=== PATIENT | male | born 1990 | race Caucasian/White ===

== ENCOUNTER 2023-08-17 22:30 | Inpatient (IN) | payer BC, SELFPAY ==
[2023-08-17 19:25] VITALS: BP 150/93
[2023-08-17 19:58] LABS: % Basophils 0.3 % (0-2); % Eosinophils 0.1 % (0-6); % Immature Granulocytes 0.5 % (0-0.5); % Lymphocytes 8.5 % (20.5-51.1); % Monocytes 7.8 % (1.7-9.3); % Neutrophils 82.8 % (42.2-75.2); Absolute Immature Granulocytes 0.1 10^3/uL (0-0.05); Absolute Monocytes 0.9 10^3/uL (0.1-0.6); Absolute Neutrophils 9.4 10^3/uL (1.4-6.5); Hematocrit 39.7 % (39.0-52.0); Hemoglobin 14.1 g/dL (13.0-18.0); Mean Corp Hgb Conc. 35.5 g/dL (33.0-37.0); Mean Corpuscular Hgb 29.9 pg (27.0-31.0); Mean Corpuscular Volume 84.1 fL (80.0-94.0); Mean Platelet Volume 8.3 fL (7.4-10.4); Nucleated Red Blood Cells % 0 % (-); Platelet Count 351 10^3/uL (130-400); Red Blood Cell Count 4.72 10^6/uL (4.70-6.10); Red Cell Dist. Width 13.1 % (11.5-14.5); White Blood Cell Count 11.3 10^3/uL (4.8-10.8)
[2023-08-17 20:13] LABS: ALT (SGPT) 24 U/L (0-50); AST (SGOT) 23 U/L (17-59); Albumin 4.1 g/dl (3.5-5.0); Alkaline Phosphatase 180 U/L (38-126); Blood Urea Nitrogen 13 mg/dl (9-20); Calcium 9.1 mg/dl (8.4-10.2); Carbon Dioxide 21 mmol/L (22-30); Chloride 92 mmol/L (98-107); Glucose 426 mg/dl (70-99); Potassium 4.6 mmol/L (3.5-5.1); Sodium 127 mmol/L (135-145); Total Bilirubin 0.8 mg/dl (0.2-1.3); Total Protein 8.9 g/dl (6.3-8.2); eGFR > 60.00
[2023-08-17 20:14] LABS: Lactic Acid 1.6 mmol/L (0.7-2.0)
[2023-08-17 21:02] VITALS: BMI 26.4
[2023-08-17 21:16] VITALS: BP 137/73
--- NOTE | 2023-08-17 21:23 | ED.GENMED ---
History of Present Illness
General
Chief Complaint: Skin Problem
Source: patient and family (Mother)
Exam Limitations: none
Time Seen by Provider: 08/17/23 21:09
Nursing documentation reviewed up to this point in time: agreed with
Travel History
Have you had any contact with someone who has COVID-19?: No
Do you have any symptoms of coronavirus? Fever > 100 degrees, chills, cough, shortness of breath, sore throat, loss of taste or smell, muscle aches, or headache?: No
History of Present Illness
History of Present Illness:
32-year-old male with a past medical history of insulin-dependent diabetes, hidradenitis suppurativa who presents to the department for evaluation of rectal pain and swelling. Patient reports that for the past 2 weeks or so he has had gradually
worsening pain in the left gluteal region extending towards his rectum and perineum. He has noticed some drainage from the area. He says the area is very warm and tender to the touch. He says that over the past 48 hours he has started develop fever
and chills. He says that initially he was seen at urgent care hoping to have the area drained and was referred to the emergency room for IV antibiotics. He does have chronic erythema and swelling in the left chest wall/axillary region that he says
has been worse over the past few weeks as well. He has a surgical appointment scheduled for follow-up in a week to discuss drainage but given worsening symptoms sought care today and was ultimately referred to the ER.
Past History
Past History
ED Past Medical History: IDDM
ED Past Surgical History: Negative Cardiac
Social History
Tobacco: Non-smoker
Alcohol: Occasional
Drug: None
Living: with family
Employment: Employed
Family History
Family History: Diabetes
Review of Systems
Review of Systems
All Other Systems: ROS reviewed and negative except as documented in HPI and ROS
Constitutional: Reports fever, fatigue and chills
EENT: Denies sore throat or runny nose
Respiratory: Denies cough or trouble breathing
Cardiac: Denies chest pain or palpitations
ABD/GI: Denies abdominal pain, nausea or vomiting
: Denies flank pain
Musculoskeletal: Denies neck pain or back pain
Skin: Reports other (Redness, swelling, pain in the gluteal/perianal/perineum)
Phy Exam
Physical Exam
Physical Exam:
General: Awake, alert, oriented x3; appears uncomfortable
Head: Normocephalic, atraumatic
Eyes: Conjunctiva normal, sclera anicteric
Throat: Airway intact, handling secretions
Neck: Trachea midline, supple without meningismus
Lungs: Clear to auscultation bilaterally, no wheezing, rales, rhonchi
Heart: Tachycardia with regular rhythm, no murmurs, gallops, or rubs
Abd: Soft, non distended, nontender
Neuro: No gross deficit
Skin: Patient has a significant area of erythema extending from the left gluteal region towards perianal region�this area is erythematous, indurated, tender to the touch and there is a wide rim of erythema and erythema tracks towards the perineum
and inferior aspect of the scrotum as well as into the left inguinal region anteriorly; he has tiny pustule in the left inguinal region serous drainage and purulence; left chest wall there is a wide area of erythema and warmth, tenderness with
scattered pustules purulent drainage
Extremities: Warm and well-perfused
Scores
Heart Failure Risk
Heart Failure Risk Score: Not Applicable
Heart Score for Chest Pain Patients
STEMI patient?: Not applicable
Withdrawal Assessment of Alcohol
Withdrawal Assessment Completed?: Not applicable
Course
Orders/Labs/Results
Orders:
Orders
08/17/23 19:42
Complete Blood Count/With Diff Urgent
Comprehensive Metabolic Panel Urgent
Lactic Acid Urgent
Blood Culture Urgent
ASYA Source: Blood/Venous
Specimen Description:
08/17/23 21:17
CT Abd/pelvis W Iv Cont Urgent
Comment:
Reason For Exam: rectal abscess tracks to perineum
Lactate Level [Lactic Acid] Urgent
08/17/23 21:18
Consult Surgery [SURGICAL CONSULT] Urgent
Consulting Provider: Maurilio Carr
Was physician already notified: Yes
Piperacillin/Tazo 3.375 Gram [Zosyn] 3.375 gram in 50 ml IV NOW
Vancomycin [Vancocin] 2,000 mg 0.9% Sodium Chloride 500 ml [Nss] 500 ml IV NOW
08/17/23 21:30
Blood Culture Q30M
ASYA Source: Blood/Venous
Specimen Description:
Abnormal Lab Results
08/17/23
19:42
WBC 11.3 H 10^3/uL
(4.8-10.8)
Abs Immat Gran (auto) 0.1 H 10^3/uL
(0-0.05)
Absolute Neuts (auto) 9.4 H 10^3/uL
(1.4-6.5)
Absolute Lymphs (auto) 1.0 L 10^3/uL
(1.2-3.4)
Absolute Monos (auto) 0.9 H 10^3/uL
(0.1-0.6)
Neutrophils % 82.8 H %
(42.2-75.2)
Lymphocytes % 8.5 L %
(20.5-51.1)
Sodium 127 L mmol/L
(135-145)
Chloride 92 L mmol/L
(98-107)
Carbon Dioxide 21 L mmol/L
(22-30)
Glucose 426 H mg/dl
(70-99)
Alkaline Phosphatase 180 H U/L
(38-126)
Total Protein 8.9 H g/dl
(6.3-8.2)
08/17/23 19:42
08/17/23 19:42
Vital Signs
Initial and Last Documented VS:
Initial Vital Signs
Temp Pulse Resp BP Pulse Ox
38.4 C H 129 18 150/93 100
08/17/23 19:25 08/17/23 19:25 08/17/23 19:25 08/17/23 19:25 08/17/23 19:25
Last Documented Vital Signs
Temp Pulse Resp BP Pulse Ox
39.4 C H 117 20 150/93 98
08/17/23 21:07 08/17/23 21:07 08/17/23 21:07 08/17/23 19:25 08/17/23 21:17
MDM/Problems Addressed
Differential Diagnosis Includes:
Abscess, cellulitis
MDM/Problems Addressed:
32-year-old male presents for evaluation of pain, redness, swelling in the left gluteal region extending towards the perirectal area and perineum as above. This has been gradually progressing over the past 2 weeks. Started to have fevers and
chills. Referred to the emergency room after urgent care visit with suspicion for significant abscess requiring IV antibiotics and surgical consultation. He is tachycardic, febrile with exam as above. IV placed labs sent off including a CBC and
CMP, lactate, blood cultures. Will send for CT of the abdomen pelvis. Will cover patient with broad-spectrum antibiotics vancomycin and Zosyn. Discussed with general surgery for consultation as I suspect based on his exam that he will require
drainage in the operating room. Will plan for admission pending initial assessment.
Labs reviewed: CBC shows leukocytosis 12.3. CMP shows hyperglycemia to 426�he has a tiny anion gap of 14 but not significantly acidotic. Will treat with subcutaneous insulin and IV fluid resuscitation. Covered with broad-spectrum antibiotics as
above. CT pending. Case discussed with hospitalist for admission.
Chronic conditions affecting care:
Insulin-dependent diabetes
Acute Exacerbation and/or Progression of Chronic Illness:
Acutely hypertensive�monitor closely but no emergent indication for antihypertensive for now
Acutely hyperglycemic�treated with insulin and fluids
Acute Exacerbation and/or Progression of Chronic Illness: DM and HTN
*Radiology
Radiology exam reviewed: radiology read reviewed
*Pulse Oximetry
Patient hypoxic: no
*Critical Care Note
Total Time (30-74mins, 75-104mins- exclusive of procedures): 37
comment:
Critical care statement: A total of 37 minutes of critical care time was provided for this patient. This includes management of unstable vital signs, evaluation of the patient at bedside, frequent reassessment, discussion with
consultants/hospitalist, and review of pertinent medical records. This time was separate from time utilized to perform any aforementioned documented procedures
Data Reviewed
Review of Other/Old Records Reveals: Labs
Source: patient and family (Mother)
Patient Management
Discussion with other providers: Hospitalist (Discussed with hospitalist) and Insights Manager (Discussed with general surgery)
Escalation/DeEscalation of care consider admission/obs:
Admission indicated
ED Attending Note
-
Portions of this chart may have been created with voice recognition software.� Occasional wrong word or��sound alike� substitutions may have occurred due to the inherent limitations of voice recognition software.
Discharge Plan
Departure
Date of Disposition: 08/17/23
Time of Disposition: 21:32
Admit to doctor: Gloria
Presentation/result/management discussed w/ accepting MD/DO: Hospitalist
Prescriptions:
No Action
insulin glargine [Lantus Solostar U-100 Insulin] 100 unit/mL (3 mL) Insulin Pen
24 unit SC BID
doxycycline hyclate 100 mg capsule
100 mg PO BID
insulin lispro [Humalog U-100 Insulin] 100 unit/mL solution
0 sliding scale dose SC ACHS
sertraline 50 mg tablet
150 mg PO DAILY
lurasidone 40 mg tablet
40 mg PO HS
Humira(CF) Pen 80 mg/0.8 mL pen injector kit
80 mg SC Q2W
Interventions
Interventions:
*Risk Screen - Suicide Last Done: 08/17/23 19:25
*General Assessment Last Done: 08/17/23 19:25
*Neglect/Abuse Screening Last Done: 08/17/23 19:25
*ED COVID-19 Vaccine History Last Done: 08/17/23 21:17
ED-Skin Assessment Last Done: 08/17/23 21:17
Discharge Date and Time
Print Language: KENYAN
--- NOTE | 2023-08-17 21:36 | HPS.HSE ---
Family Physician
-
Family Physician: JEM Howard
Chief Complaint
-
rectal abscess
History of Present Illness
32-year-old male with a past medical history of insulin-dependent diabetes, hidradenitis suppurativa who presents to the department for evaluation of rectal pain and swelling. Patient reports that for the past 2 weeks or so he has had gradually
worsening pain in the left gluteal region extending towards his rectum and perineum. He has noticed some drainage from the area. since yesterday, he is having fever, chills, . worsening of his gluteal pain. He does have chronic erythema and
swelling in the left chest wall/axillary region that he says has been worse over the past few weeks as well. stated PONCE, dizzy when he stands up. denied runny nose congestion, cough. denied chest pain, sob. denied abdominal pain, n,v,d. denied
dysuria or hematuria.
on arrival patient is sepsis. gave vanco and Zosyn. fluids. patient also received 10u insulin ER. admitting for further management.
Medical History
Past Medical History
Past Medical History: Reports Other
Additional Past Medical History:
Hidradenitis suppurativa
type 1 Dm
Past Surgical History: Reports None
Social History
Tobacco: Non-smoker
Alcohol: None
Drug: None
Living: With Family
Family History
Family History: Not pertinent
Allergies / Home Medications
Allergies reflects when Allergies were last updated in [facility].
Home Medications with original date entered in [facility]
Allergy/Medication List:
Allergies
Allergy/AdvReac Type Severity Reaction Status Date / Time
NKA - No Known Allergies Allergy Tongue Uncoded 07/22/22 04:07
Swelling
Home Medications
insulin glargine 100 unit/mL (3 mL) subcutaneous pen (Lantus Solostar U-100 Insulin) 24 unit SC BID 07/22/22
adalimumab 80 mg/0.8 mL subcutaneous pen kit (Humira(CF) Pen) 80 mg SC Q2W 08/17/23
doxycycline hyclate 100 mg capsule 100 mg PO BID 08/17/23
insulin lispro 100 unit/mL subcutaneous solution (Humalog U-100 Insulin) 0 sliding scale dose SC ACHS 08/17/23
lurasidone 40 mg tablet 40 mg PO HS 08/17/23
sertraline 50 mg tablet 150 mg PO DAILY 08/17/23
Review of Systems
-
Constitutional: Reports No Symptoms
EENT: Reports No Symptoms
Respiratory: Reports No Symptoms
Cardiac: Reports No Symptoms
Abdomen/GI: Reports No Symptoms
: Reports No Symptoms
Musculoskeletal: Reports No Symptoms
Skin: Reports Other (left chest wall wound, rectum wound)
Neurological: Reports No Symptoms
Endocrine: Reports No Symptoms
Hematologic/Lymphatic: Reports No Symptoms
Psych: Reports No Symptoms
Physical Exam
Vital Signs
Vital Signs
Temp Pulse Resp BP Pulse Ox
102.9 F H 117 20 150/93 98
08/17/23 21:07 08/17/23 21:07 08/17/23 21:07 08/17/23 19:25 08/17/23 21:17
Physical Exam
General: Well Developed, Well Nourished and No Apparent Distress
HEENT: NormoCephalic, Moist mucous membranes and Atraumatic
Respiratory: Clear
Cardiac: S1/S2 and Regular Rhythm; No Murmur or Rub
GI: Soft, Non Tender, Non Distended and Normal Bowel Sounds; No Organomegaly
Rectal: Deferred by Provider
Musculoskeletal: No Clubbing, No Cyanosis and No Edema
Skin: Other (erythema extending from the left gluteal region towards perianal region-this area is erythematous, indurated)
Neuro: AO x 3 and Nonfocal/grossly intact
Psych: Calm
Laboratory Results
-
08/17/23 19:42
08/17/23 19:42
Laboratory Results
Lactic Acid 1.6 mmol/L (0.7-2.0) 08/17/23 19:42
Total Bilirubin 0.8 mg/dl (0.2-1.3) 08/17/23 19:42
AST 23 U/L (17-59) 08/17/23 19:42
ALT 24 U/L (0-50) 08/17/23 19:42
Alkaline Phosphatase 180 U/L (38-126) H 08/17/23 19:42
Data Reviewed
-
Lab Data: Labs Reviewed by me
Impression/Plan
-
# Sepsis from perirectal abscess
-WBC 11.3, fever of 102.9, tachy
-CT abdomen pelvis pending
-IV Vanco Zosyn continued
-Dilaudid as needed for pain
-Tylenol as needed for fever
-Blood culture sent from ER
-Trend lactic acid
-Surgery consulted
# Hyponatremia likely pseudo
-corrected sodium is 135
-CTM
# Type 1 diabetes with hyperglycemia
-Patient received NovoLog 10 units in the ER
-blood sugar 426
-Lantus 25 units twice a day continued
-Sliding scale
# Anxiety
-Sertraline continued
-Lurasidone continued
# DVT prophylaxis
-. SCD
# CODE STATUS
-Full code
[2023-08-17] MEDS: NSS 1000 IV (21:47)
[2023-08-17] MEDS: DILAUDID 0.5 MG IV (21:48)
[2023-08-17] MEDS: ZOSYN 50 IV (21:49)
[2023-08-17] MEDS: NOVOLOG vial 10 UNITS SC (21:55)
[2023-08-17] MEDS: TYLENOL 1000 MG PO (21:57)
[2023-08-17 21:58] LABS: Lactic Acid 2.1 mmol/L (0.7-2.0)
[2023-08-17 22:00] VITALS: BP 129/75
--- NOTE | 2023-08-17 22:36 | W.PN.UPDATE ---
Update Note
Progress Note Update
This is an addendum to the H&P written by Macy Hagan on 08/17/2023. Patient seen and examined independently with COMPOSITION ROLL MAKER [employer] CUTTER. 32-year-old male past medical history of type 1 diabetes, hiradenitis supparatica, presenting with rectal pain, swelling and
discharge over the past few weeks which has been extending to the perineum associate with fevers and chills. He has sepsis secondary to perirectal abscess. N.p.o. past midnight, IV fluids, pain/nausea control, blood cultures, vancomycin/Zosyn. CT
abdomen pelvis pending. General surgery may take to OR tomorrow.
Patient also with elevated blood sugar of 400 secondary to infection. Continue Lantus 24 units twice daily.
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
[2023-08-17 23:06] VITALS: BP 137/73
[2023-08-17 23:09] VITALS: BP 137/73
[2023-08-17] MEDS: VANCOCIN 540 MG IV (23:22)
[2023-08-17 23:59] LABS: Glucose - Point of Care 298 mg/dl (70-99)
[2023-08-18] VITALS (16 sets, daily range): BP systolic 106–155; BP diastolic 61–88
[2023-08-18] MEDS: LANTUS 0.239999999999999991 UNITS SC ×3 (00:21→19:41)
[2023-08-18] MEDS: NSS 1000 IV ×3 (00:21→17:13)
[2023-08-18] MEDS: LATUDA PO (04:41)
--- NOTE | 2023-08-18 04:46 | DOWNTIME ---
There was a [employer] Client Medical Microbiologist Downtime on 08/18/2023 from 0100 to 08/18/2023 at 0439. Downtime documentation of patient's care, including medication administrations, has been reconciled in the electronic record per guidelines. Refer to the
patient's paper chart under the miscellaneous tab to see printed paper medication records and downtime forms.
--- NOTE | 2023-08-18 06:28 | W.PN.HOSP.TC ---
Today's Communication/Plan
-
see bold
Assessment / Plan
Assessment / Plan
Gen: NAD, AAOx3.
Eyes: EOMI, PERRLA, no scleral icterus.
Neck: supple.
CV: RRR, +S1/S2, no m/r/g.
Resp: CTAB, no rales, wheezes, or rhonchi.
Abd: +BS, soft, NT, ND
Skin: No rashes.
Neuro: CN 2-12 intact, non-focal.
Psych: Normal mood and affect.
CT A/P:
1. LARGE 6.8 cm TUBULAR SHAPED RIM-ENHANCING RIGHT-SIDED PERIANAL ABSCESS extending to the right posterior skin surface surrounded by moderate inflammation and overlying skin thickening. 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
2. No CT evidence for intraperitoneal abscess.
3. Moderate amount of fecal material throughout the colon and rectum suggesting constipation.
4. Mild to moderate hepatosplenomegaly.
Sepsis due to perianal abscess:
-NPO/IVFs/pain control
-surgery c/s
-cont Vanco/Zosyn
-follow BCxs
-lactic acidosis, trend lactic acid
DM1, uncontrolled with hyperglycemia:
-cont Lantus/SSI/accuchecks
-check a1c
Other problems:
Hidradenitis suppurativa: outpt f/u
Anxiety: Continue Zoloft/Lurasidone
Hyponatremia, corrected Na 132
FULL/SCDs
Anticipated Discharge: > 48 hours
Subjective/Interval History
-
Date of Service: August 18, 2023
No new complaints.
Objective Data
-
Labs:
Laboratory Results
08/17/23 08/18/23
19:42 06:00
WBC 11.3 H Pending
Hgb 14.1 Pending
Hct 39.7 Pending
Plt Count 351 Pending
Sodium 127 L Pending
Potassium 4.6 Pending
Chloride 92 L Pending
Carbon Dioxide 21 L Pending
BUN 13 Pending
Creatinine 0.8 Pending
Glucose 426 H Pending
Calcium 9.1 Pending
Total Bilirubin 0.8
AST 23
ALT 24
Alkaline Phosphatase 180 H
Vital Signs:
Vital Signs
Temp Pulse Resp BP Pulse Ox
98.3 F 91 20 131/78 98
08/17/23 23:09 08/18/23 00:19 08/18/23 00:19 08/18/23 00:19 08/18/23 00:19
[2023-08-18 06:40] LABS: Hematocrit 33.1 % (39.0-52.0); Hemoglobin 11.5 g/dL (13.0-18.0); Mean Corp Hgb Conc. 34.7 g/dL (33.0-37.0); Mean Corpuscular Volume 86.4 fL (80.0-94.0); Mean Platelet Volume 8.3 fL (7.4-10.4); Platelet Count 238 10^3/uL (130-400); Red Blood Cell Count 3.83 10^6/uL (4.70-6.10); Red Cell Dist. Width 12.9 % (11.5-14.5); White Blood Cell Count 8.2 10^3/uL (4.8-10.8)
[2023-08-18 06:55] LABS: Lactic Acid 0.6 mmol/L (0.7-2.0)
[2023-08-18 07:07] LABS: Blood Urea Nitrogen 8 mg/dl (9-20); Calcium 7.9 mg/dl (8.4-10.2); Carbon Dioxide 25 mmol/L (22-30); Chloride 99 mmol/L (98-107); Estimated Creatinine Clearance > 125 ml/min; Glucose 265 mg/dl (70-99); Sodium 130 mmol/L (135-145); eGFR > 60.00
[2023-08-18 07:59] LABS: Glucose - Point of Care 290 mg/dl (70-99)
[2023-08-18] MEDS: ZOLOFT 150 MG PO (08:49)
[2023-08-18] MEDS: NOVOLOG FLEXPEN-MODERATE RESISTANCE 5 UNITS SC (08:50)
[2023-08-18] MEDS: DILAUDID 1 MG IV ×2 (08:51→19:25)
[2023-08-18 09:12] LABS: Glycohemoglobin (HgbA1c) 12.1 % (4.0-5.6)
--- NOTE | 2023-08-18 09:35 | PHA.VAN.IN ---
Assessment
- Assessment
Renal Function: Appears similar to baseline
Concomitant Antimicrobials: piperacillin/tazobactam
AUC Dosing Plan
- Dosing Variables
Dosing Weight (kg): 88
Dosing CrCl (ml/min): 125
Vd coefficient (L/kg): 0.7
- Empiric Dosing
Initial / Loading Dose: 2000mg - 08/16 23:22
Maintenance Regimen: Vanc 1000mg Q8H starting at 1400
Estimated AUC (mcg*h/mL): 475
Estimated Peak (mcg*h/mL): 28
Estimated Trough (mcg/ml): 13.2
Estimated Half Life (H): 6.4
- Monitoring
No levels ordered at this time: consider levels in next few days
Pharmacokinetics Vancomycin I
- -
Patient Age: 32
Patient Sex: Male
Vancomycin Day #: 1
Indication: Skin And Soft Tissue
Requesting Provider: Dinorah Hagan
Pertinent Antimicrobial Allergies:
NKDA
Height / Weight:
Height 6 ft
Actual Weight 88.1 kg
Pertinent Past Medical History: DM
- Vital Signs / Lab Results
Temp Pulse Resp BP Pulse Ox
97.8 F 85 21 106/66 98
08/18/23 07:00 08/18/23 06:30 08/18/23 03:30 08/18/23 06:26 08/18/23 06:26
Lab Results - Hematology
08/17/23 08/18/23
19:42 06:28
WBC 11.3 H 8.2
Lab Results - Chemistry
08/17/23 08/18/23
19:42 06:28
BUN 13 8 L
Creatinine 0.8 0.5 L
Estimated Creat Clear > 125
Albumin 4.1
08/17/23 08/17/23 08/18/23
19:42 21:30 06:28
Lactic Acid 1.6 2.1 H 0.6 L
--- NOTE | 2023-08-18 10:59 | CON.GS ---
Consultation
-
Requesting Provider: Bentley
Performing Provider: Lilly
Reason for Consultation: Perianal abscess
Medical History
-
Chief Complaint: Perianal pain
History of Present Illness:
32M with several week hx of perianal pain that acutley worsened in the past 2-3 days. He has a known hx of hidradenitis affecting mostly his left axilla and perianal area. Endorses chills and drainage and elevated sugars. He reports he has struggled
to control his sugars over the past year. Denies n/v. Denies diarrhea/constipation.
Past Medical History
Past Medical History: IDDM and Other (hidradenitis)
Past Surgical History: Reviewed & Noncontributory
Social History
Tobacco: Non-Smoker
Alcohol: None
Drug: None
Personal:
Family History
Family History: Reviewed & Noncontributory
Allergies / Home Medications
Allergy/AdvReac Type Severity Reaction Status Date / Time
No Known Allergies Allergy Unverified 08/17/23 23:57
�Medication �Instructions �Recorded �Confirmed �Type
insulin glargine 100 unit/mL (3 24 unit SC BID 07/22/22 08/17/23 History
mL) subcutaneous pen (Lantus
Solostar U-100 Insulin)
adalimumab 80 mg/0.8 mL 80 mg SC Q2W 08/17/23 08/17/23 History
subcutaneous pen kit (Humira(CF)
Pen)
doxycycline hyclate 100 mg capsule 100 mg PO BID 08/17/23 08/17/23 History
insulin lispro 100 unit/mL 0 sliding scale dose SC ACHS 08/17/23 08/17/23 History
subcutaneous solution (Humalog
U-100 Insulin)
lurasidone 40 mg tablet 40 mg PO HS 08/17/23 08/17/23 History
sertraline 50 mg tablet 150 mg PO DAILY 08/17/23 08/17/23 History
Review of Systems
-
A 10 point review of systems was completed, and was negative except as per HPI.
Physical Exam
Vital Signs
Temp Pulse Resp BP Pulse Ox
97.8 F 85 21 106/66 98
08/18/23 07:00 08/18/23 06:30 08/18/23 03:30 08/18/23 06:26 08/18/23 06:26
08/17/23 08/18/23 08/19/23
06:59 06:59 06:59
Actual Weight 88.1 kg
Body Mass Index (BMI) 26.4
Lab Results
08/18/23 06:28
08/18/23 06:28
WBC 8.2 10^3/uL (4.8-10.8) 08/18/23 06:28
Hgb 11.5 g/dL (13.0-18.0) L 08/18/23 06:28
Hct 33.1 % (39.0-52.0) L 08/18/23 06:28
Plt Count 238 10^3/uL (130-400) D 08/18/23 06:28
Abs Immat Gran (auto) 0.1 10^3/uL (0-0.05) H 08/17/23 19:42
Neutrophils % 82.8 % (42.2-75.2) H 08/17/23 19:42
Physical Exam
General: Well Developed, Well Nourished and No Apparent Distress
GI: Soft and Non Tender
Rectal: Tenderness (tender fluctuant erythematous areas with bloody purulent drainage, limited exam 2/2 tenderness)
Neuro: AO x 3
Psych: Calm
Data Reviewed
-
CT Scan: Image Personally Visualized and interpreted, Report Reviewed by me, Discussed with Patient and Discussed with Family
Labs: Labs Reviewed by me, Discussed with Patient and Discussed with Family
Assessment / Plan
-
32M with perianal abscess in setting of IDDM and hidradenitis
Tmax 102.9F, fever trending down, otherwise VSS
Spontaneous drainage present but limited exam
WBC has normalized
CT with rim enhancing perianal collection
Plan:
OCTOR for EUA and I&D of perianal abscess
IV abx
NPO/IVF
DVT ppx
PRN pain meds
[2023-08-18 11:32] LABS: Glucose - Point of Care 224 mg/dl (70-99)
[2023-08-18] MEDS: NOVOLOG FLEXPEN-MODERATE RESISTANCE 3 UNITS SC (12:17)
--- NOTE | 2023-08-18 12:42 | WOUNDNOTE ---
WOC RN NOTE: Chart reviewed, plan is for OR for abscess. Will follow as needed s/p surgery. Hospitalist notified.
[2023-08-18] MEDS: TYLENOL 650 MG PO (13:01)
[2023-08-18] MEDS: VANCOCIN 200 IV ×2 (13:59→22:06)
[2023-08-18 15:06] LABS: Glucose - Point of Care 259 mg/dl (70-99)
[2023-08-18] MEDS: NOVOLOG vial 6 UNITS SC (15:14)
--- NOTE | 2023-08-18 16:18 | W.IMMPOSTOP ---
Surgical Immed Post Op Note
-
Primary Surgeon: Lilly
Pre-op Diagnosis: Perianal abscess
Post-op Diagnosis: Same
Procedure Performed: Incision and drainage of perianal abscess
Anesthesia Type: LMA
Specimen / Cultures: None
Estimated Blood Loss: 25cc
Complications: None immediate
Operative Findings: 2 wounds, one distal that is shallow and packed with 4x4, one very close to anus packed with single kerlix
--- NOTE | 2023-08-18 16:20 | OR.RPT ---
Operative Report
Operative Report
Primary Surgeon: Lilly
Pre-op Diagnosis: Perianal abscess
Post-op Diagnosis: Same
Procedure Performed: Exam under anesthesia, incision and drainage of perianal abscess
Anesthesia Type: LMA
Specimen / Cultures: None
Estimated Blood Loss: 25cc
Complications: None immediate
Operative Findings: 2 wounds, one distal that is shallow and packed with 4x4, one very close to anus packed with single kerlix
Date of Surgery: 08/18/23
Indications: This 32M with a history of insulin dependent diabetes and hidradenitis developed perianal swelling, pain and drainage. Cross sectional imaging revealed a perianal rim enhancing fluid collection. Exam under anesthesia, incision and
drainage of perianal abscess was planned.
Description of procedure: The patient was placed on the operating table in the supine position. General anesthesia was induced using LMA. A time-out was completed verifying correct patient, procedure, site, positioning, and special equipment prior
to beginning this procedure. Pt was positioned into lithotomy. The perianal area was prepped and draped in the usual sterile fashion. An area of fluctuance with expressible drainage was identified and incised with a #15 blade. This area did not open
up into an abscess cavity but appeared to be a scarred in tract from his hidradenitis. A second area of active drainage was identified near the anus. This area was similarly incised unroofing the abscess cavity. The cavity was digitally probed to
disrupt loculatins and irrigated with copious sterile saline. A saline moist 4x4 was used to pack the shallow wound, the deeper wound was packed with saline moist kerlix. 4x4s were placed over the wounds and disposable underwear was placed.
The patient tolerated the procedure well and was taken to the postanesthesia care unit in stable condition.
[2023-08-18] MEDS: DILAUDID 0.25 MG IV ×2 (16:56→17:13)
[2023-08-18 17:02] LABS: Glucose - Point of Care 205 mg/dl (70-99)
[2023-08-18] MEDS: NOVOLOG vial 3 UNITS SC (17:13)
--- NOTE | 2023-08-18 17:45 | PTCARENOTE ---
Pt arrived to [facility] from PACU s/p melissa anal abscess I&D. Pt has packing in place with ABD pads over top with serosanguineous drainage. IVF infusing, pt states pain is 4/10. Pt oriented to room and call guerrero, bed locked and in lowest position, call
guerrero within reach.
[2023-08-18 17:49] LABS: Glucose - Point of Care 159 mg/dl (70-99)
[2023-08-18] MEDS: NOVOLOG FLEXPEN-MODERATE RESISTANCE 1 UNITS SC (18:25)
[2023-08-18 19:42] LABS: Glucose - Point of Care 244 mg/dl (70-99)
[2023-08-18 21:39] LABS: Glucose - Point of Care 308 mg/dl (70-99)
[2023-08-18] MEDS: NOVOLOG FLEXPEN 6 UNITS SC (22:03)
[2023-08-18] MEDS: LATUDA 40 MG PO (22:06)
[2023-08-18 23:58] LABS: Glucose - Point of Care 293 mg/dl (70-99)
[2023-08-19] MEDS: DILAUDID 1 MG IV ×4 (01:34→21:25)
[2023-08-19 03:30] VITALS: BP 104/61
[2023-08-19] MEDS: NSS 1000 IV (03:32)
[2023-08-19] MEDS: ZOSYN 50 IV ×4 (03:32→22:53)
[2023-08-19] MEDS: TYLENOL 650 MG PO (05:27)
[2023-08-19] MEDS: VANCOCIN 200 IV ×3 (05:28→21:15)
[2023-08-19 05:29] LABS: Hemoglobin 10.4 g/dL (13.0-18.0); Mean Corp Hgb Conc. 34.7 g/dL (33.0-37.0); Mean Corpuscular Hgb 29.5 pg (27.0-31.0); Mean Platelet Volume 8.4 fL (7.4-10.4); Platelet Count 247 10^3/uL (130-400); Red Blood Cell Count 3.53 10^6/uL (4.70-6.10); Red Cell Dist. Width 12.8 % (11.5-14.5); White Blood Cell Count 7.1 10^3/uL (4.8-10.8)
[2023-08-19 05:57] LABS: Blood Urea Nitrogen 6 mg/dl (9-20); Calcium 7.8 mg/dl (8.4-10.2); Carbon Dioxide 31 mmol/L (22-30); Chloride 97 mmol/L (98-107); Estimated Creatinine Clearance > 125 ml/min; Glucose 184 mg/dl (70-99); Potassium 3.6 mmol/L (3.5-5.1); Sodium 130 mmol/L (135-145); eGFR > 60.00
[2023-08-19 07:08] VITALS: BP 97/63
[2023-08-19 08:05] LABS: Glucose - Point of Care 210 mg/dl (70-99)
--- NOTE | 2023-08-19 08:36 | PHA.VAN.FU ---
Vancomycin Assessment / Plan
- Assessment
Renal Function: Stable
WBC's are: WNL
Concomitant Antimicrobials: piperacillin/tazobactam
- Dosing Plan
Continue: Vanc 1000mg Q8H
- Monitoring Plan
No level(s) ordered at this time: consider levels in next few days
- Follow Up
Pharmacy will continue to follow.
Vancomycin Follow UP
- -
Patient Age: 32
Patient Sex: Male
Vancomycin Day #: 2
Indication: Skin And Soft Tissue
Requesting Provider: Dinorah Hagan
Pertinent Antimicrobial Allergies:
NKDA
Height / Weight:
Height 6 ft
Actual Weight 88.1 kg
Pertinent Past Medical History: DM
- Vital Signs / Lab Results
Temp Pulse Resp BP Pulse Ox
98 F 84 19 97/63 97
08/19/23 07:08 08/19/23 07:08 08/19/23 07:08 08/19/23 07:08 08/19/23 07:08
Lab Results - Hematology
08/17/23 08/18/23 08/19/23
19:42 06:28 04:30
WBC 11.3 H 8.2 7.1
Lab Results - Chemistry
08/17/23 08/18/23 08/19/23
19:42 06:28 04:30
BUN 13 8 L 6 L
Creatinine 0.8 0.5 L 0.5 L
Estimated Creat Clear > 125 > 125
Albumin 4.1
08/17/23 08/17/23 08/18/23
19:42 21:30 01:30
Lactic Acid 1.6 2.1 H Cancelled
08/18/23
06:28
Lactic Acid 0.6 L
Microbiology Results
08/17/23 21:30 Blood Culture - Preliminary
Blood/Venous No Growth in 24 hours- Final report to follow
08/17/23 19:42 Blood Culture - Preliminary
Blood/Venous No Growth in 24 hours- Final report to follow
[2023-08-19] MEDS: ZOLOFT 150 MG PO (09:45)
[2023-08-19] MEDS: NOVOLOG FLEXPEN-MODERATE RESISTANCE 3 UNITS SC (09:46)
[2023-08-19] MEDS: LANTUS 0.239999999999999991 UNITS SC (09:46)
[2023-08-19 11:35] VITALS: BP 113/62
--- NOTE | 2023-08-19 12:14 | W.PN.HOSP.TC ---
Today's Communication/Plan
-
see bold
Assessment / Plan
Assessment / Plan
Gen: NAD, AAOx3.
Eyes: EOMI, PERRLA, no scleral icterus.
Neck: supple.
CV: Remains RRR, +S1/S2, no m/r/g.
Resp: Remains CTAB, no rales, wheezes, or rhonchi.
Abd: +BS, soft, NT, ND
Skin: No rashes.
Neuro: Remains CN 2-12 intact, non-focal.
Psych: Normal mood and affect.
08/17/23 21:30 Blood/Venous Blood Culture - Preliminary
No Growth in 24 hours- Final report to follow
08/17/23 19:42 Blood/Venous Blood Culture - Preliminary
No Growth in 24 hours- Final report to follow
CT A/P:
1. LARGE 6.8 cm TUBULAR SHAPED RIM-ENHANCING RIGHT-SIDED PERIANAL ABSCESS extending to the right posterior skin surface surrounded by moderate inflammation and overlying skin thickening. 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
2. No CT evidence for intraperitoneal abscess.
3. Moderate amount of fecal material throughout the colon and rectum suggesting constipation.
4. Mild to moderate hepatosplenomegaly.
Sepsis due to perianal abscess:
-s/p incision and drainage of perianal abscess on 08/18/23
-surgery following
-cont Vanco/Zosyn
-BCxs NGTD
-lactic acidosis, resolved
-c/s ID
DM1, uncontrolled with hyperglycemia:
-a1c 12.1%
-changes: Lantus 42U HS, start premeal aspart 8U
-cont SSI/accuchecks
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
Other problems:
Hidradenitis suppurativa: outpt f/u
Anxiety: Continue Zoloft/Lurasidone
Hyponatremia, mild
FULL/Lovenox
Anticipated Discharge: 24 - 48 hours
Subjective/Interval History
-
Date of Service: August 19, 2023
Objective Data
-
Labs:
Laboratory Results
08/19/23
04:30
WBC 7.1
Hgb 10.4 L
Hct 30.0 L
Plt Count 247
Sodium 130 L
Potassium 3.6
Chloride 97 L
Carbon Dioxide 31 H
BUN 6 L
Creatinine 0.5 L
Glucose 184 H
Calcium 7.8 L
Vital Signs:
Vital Signs
Temp Pulse Resp BP Pulse Ox
98.2 F 97 18 113/62 98
08/19/23 11:35 08/19/23 11:35 08/19/23 11:35 08/19/23 11:35 08/19/23 11:35
I&O
08/18/23 08/19/23 08/20/23
06:59 06:59 06:59
Intake Total 3950 / 3950
Output Total 1750 / 1750
Balance 2200 / 2200
--- NOTE | 2023-08-19 12:38 | CON.ID ---
Consultation
-
Date/Time Consultation Requested: August 19, 2023 1225
Date/Time Consultation Performed: August 19, 2023 1130
Requesting Provider: Dr. Chandana Hassan
Performing Provider: Dr. Mary Aguilera
Reason for Consultation: Anal abscess
Chief Complaint / Past History
Chief Complaint
Rectal pain
History of Present Illness
32-year-old male with history of type 1 diabetes mellitus, hidradenitis suppurativa on Humira who presented to the hospital on August 16 due to 2-week history of worsening rectal pain swelling and drainage. He went to an urgent care who prescribed
doxycycline. However he has not improved. He developed fevers and chills and therefore came to the hospital. His white count was 11.3. Temperature 102.9. He was started on vancomycin and Zosyn. CT pelvis showed 6.8 cm rim-enhancing melissa-anal
abscess. Yesterday he underwent OR incision and drainage of the abscess. He feels a little bit better today. He reports hidradenitis suppurativa x 6 years and placed on Humira 3 years ago with some improvement. 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
Whenever he gets a flare, the cysts were lanced and placed on a course of doxycycline. The hidradenitis is located the on his left axilla and perirectal areas.
Past History
Additional Past Medical History:
Diabetes mellitus type 1
Hidradenitis suppurativa on Humira
Anxiety/depression
Allergy History:
No Known Allergies Allergy (Unverified 08/17/23 23:57)
Medications Reviewed: Yes
Current Antibiotics:
Vancomycin
Zosyn
Social History
Tobacco: Non-Smoker
Alcohol: None
Drug: None
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
Family History
Family History: Not Pertinent
Review of Systems
Review of Systems
General: Negative Change in Appetite
HEENT: Negative Sinus Problems, Headache or Pharyngitis
Cardiovascular: Negative Chest Pain or Dyspnea
Respiratory: Negative Dyspnea
Gasteroenterology: Other (no diarrhea); Negative Nausea or Vomiting
Genital / Urological: Negative Dysuria or Flank Pain
Endocrine: Negative Weakness
Neurological: Negative Headache or Dizziness
All systems: All other systems were reviewed and were negative
Vital Signs
Temp Pulse Resp BP Pulse Ox
98.2 F 97 18 113/62 98
08/19/23 11:35 08/19/23 11:35 08/19/23 11:35 08/19/23 11:35 08/19/23 11:35
Selected Entries
08/18/23
23:30
Temp 100.4 F H
Physical Exam
Physical Exam
Constitutional: No Acute Distress and Comfortable
Eyes: No Conjunctival Hemorrhage and Sclera Anicteric
Cardiovascular: Regular Rate and S1/S2
Pulmonary: Clear
Gastrointestinal: Soft, Non Tender and Non Distended
Extremities: Negative Edema
Neurological: AO x 3
Lab / Diagnostic Study Results
08/19/23 04:30
08/19/23 04:30
Abs Immat Gran (auto) 0.1 10^3/uL (0-0.05) H 08/17/23 19:42
Absolute Neuts (auto) 9.4 10^3/uL (1.4-6.5) H 08/17/23 19:42
Absolute Lymphs (auto) 1.0 10^3/uL (1.2-3.4) L 08/17/23 19:42
Absolute Monos (auto) 0.9 10^3/uL (0.1-0.6) H 08/17/23 19:42
Absolute Basos (auto) 0.0 10^3/uL (0-0.2) 08/17/23 19:42
Immature Gran % 0.5 % (0-0.5) 08/17/23 19:42
Neutrophils % 82.8 % (42.2-75.2) H 08/17/23 19:42
Lymphocytes % 8.5 % (20.5-51.1) L 08/17/23 19:42
Monocytes % 7.8 % (1.7-9.3) 08/17/23 19:42
Eosinophils % 0.1 % (0-6) 08/17/23 19:42
Basophils % 0.3 % (0-2) 08/17/23 19:42
Lactic Acid 0.6 mmol/L (0.7-2.0) L 08/18/23 06:28
Microbiology Results
Micro:
08/17/23 21:30 Blood Culture - Preliminary
Blood/Venous No Growth in 24 hours- Final report to follow
08/17/23 19:42 Blood Culture - Preliminary
Blood/Venous No Growth in 24 hours- Final report to follow
08/18/23 18:09 MRSA Screen - Pending
Nose
08/17/23 CT a/p: LARGE 6.8 cm TUBULAR SHAPED RIM-ENHANCING RIGHT-SIDED PERIANAL ABSCESS extending to the right posterior skin surface surrounded by moderate inflammation and overlying skin thickening. 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
Assessment / Plan
# Perirectal abscess s/p OR I+D 08/18/23; no intra-op culture sent
# Perirectal hidradenitis suppurative flare
# Fever trending down
# Leukocytosis resolved
# DM1
- DC Vancomycin.
-Continue Zosyn then transition to outpatient Augmentin 875mg po bid x 10 days.
[2023-08-19 12:58] LABS: Glucose - Point of Care 346 mg/dl (70-99)
[2023-08-19] MEDS: NOVOLOG FLEXPEN-MODERATE RESISTANCE 7 UNITS SC ×2 (13:37→17:52)
--- NOTE | 2023-08-19 14:36 | CM ---
Patient seen bedside, initial assessment completed. Patient lives with family in a single story home, denies DME, VN, or SNF. Patient is independent with ADLs. Patient confirms PCP Lino Roque, [facility]. Patient on IV antibiotics.
CM will continue to follow for discharge planning needs.
Plan; home no needs likely.
--- NOTE | 2023-08-19 14:44 | PN.DE.MGMTRT ---
Insulin Management
- -
08/19/2023: Diabetes Management Consult
32 year old male w/MH: T1DM and hidradenitis suppurativa who presents to the ED for evaluation of rectal pain and swelling noted for Sepsis due to perianal abscess. He is now s/p incision and drainage of perianal abscess on 08/18/23.
Pt follows Endocrine Dr. Cunningham, was last seen 3 years ago, and his A1C was 7.4% at the time. A1C was 12.1% on admission, states he uses CGM- [employer] for glucose monitoring at home. He does not follow any particular meal plan although he states he
was told to follow a diabetic diet.
Pt seen after lunch, resting in bed, Awake, A/O x3, offers no complaints and is able to participate in discussion regarding diabetes management.
States he was taking Lantus 24 units BID, Humalog SS insulin following ICR of 1.5:10, ISF of 1:40-50, Target glucose of 100, prior to admission. Cr 0.5, eGFR>60
His is noted for persistent Hyperglycemia, as high as 346 prior to lunch today and FBG of 184 this AM.
He has been started on NovoLog 8 units AC and his Lantus dose has been changed to 42 units @ HS by Dr. Hassan, however pt states he takes his Lantus BID and prefers to continue same schedule here.
Will change his Lantus back to BID at increased dose of 30 units BID. Agree with current Novolog AC dose of 8 units. Cont low corrective insulin with meals.
Change diet from 2200 brett diet to 2000 brett diet
Discussed with pt, potential interest in going on an insulin pump and he stated that he is comfortable with insulin injections.
Will follow closely and adjust further as necessary.
Diabetes History
- -
Type of Diabetes: 1
Pre-Admission Diabetes Regimen
08/19/23
04:30
Creatinine 0.5 L
Lab Results
Hemoglobin A1c 12.1 % (4.0-5.6) H 08/18/23 06:28
Insulin Pump Settings
IP Diabetes Regimen
08/18/23 08/18/23 08/18/23
15:04 17:01 17:48
Glucose
POC Glucose 259 H 205 H 159 H
08/18/23 08/18/23 08/18/23
19:41 21:37 23:57
Glucose
POC Glucose 244 H 308 H 293 H
08/19/23 08/19/23 08/19/23
04:30 08:03 12:58
Glucose 184 H
POC Glucose 210 H 346 H
Patient Education
[2023-08-19 15:59] VITALS: BP 137/79
--- NOTE | 2023-08-19 16:18 | W.PN.GS2 ---
Today's Communication / Plan
-
`
Assessment / Plan
-
Assessment: 32-year-old male POD #1 status post I&D perianal abscess
Packing removed at bedside.
Plan: ID following -Zosyn
Start sitz bath's 3 times daily and as needed bowel movements to keep area clean
Apply ABD pad for drainage from open wounds
Subjective Data
-
Date of Service: August 19, 2023
Patient seen and examined.
Has a headache.
Postoperative pain present but controlled.
Offers no additional concerns or questions
Objective Data
-
Intake and Output
08/18/23 08/19/23 08/20/23
06:59 06:59 06:59
Intake Total 3950 / 3950
Output Total 1750 / 1750
Balance 2200 / 2200
Intake:
Oral fluids 2400 / 2400
IV fluids (Total) 1300 / 1300
Nss 1,000 ml @ 100 mls/hr IV . 100 / 100
Q10H [facility] Rx#:[id number]
IV piggybacks 250 / 250
Output:
Urine, Voided 1750 / 1750
Vital Signs
Temp Pulse Resp BP Pulse Ox
98.3 F 96 19 137/79 96
08/19/23 15:59 08/19/23 15:59 08/19/23 15:59 08/19/23 15:59 08/19/23 15:59
Lab Results
08/19/23 04:30
08/19/23 04:30
Calcium 7.8 mg/dl (8.4-10.2) L 08/19/23 04:30
Total Bilirubin 0.8 mg/dl (0.2-1.3) 08/17/23 19:42
AST 23 U/L (59) 08/17/23 19:42
ALT 24 U/L (0-50) 08/17/23 19:42
Alkaline Phosphatase 180 U/L (38-126) H 08/17/23 19:42
Total Protein 8.9 g/dl (6.3-8.2) H 08/17/23 19:42
Albumin 4.1 g/dl (3.5-5.0) 08/17/23 19:42
Physical Exam
-
NAD AAOx3
Gluteal/perianal wounds examined. Packing removed. No further purulence. Serosanguineous fluid.
[2023-08-19 16:59] LABS: Glucose - Point of Care 347 mg/dl (70-99)
[2023-08-19] MEDS: LOVENOX 40 MG SC (17:51)
[2023-08-19] MEDS: NOVOLOG FLEXPEN 8 UNITS SC (17:52)
--- NOTE | 2023-08-19 18:33 | PTCARENOTE ---
pt's surgical packing and dressing removed at bedside this afternoon by Dr Tobar. pt educated on sitz bath and performed sitz bath at 1700. new mesh panties and ABD pad placed. will observe.
[2023-08-19 19:05] VITALS: BP 129/83
[2023-08-19 19:33] LABS: Glucose - Point of Care 300 mg/dl (70-99)
[2023-08-19] MEDS: LATUDA 40 MG PO (21:15)
[2023-08-19] MEDS: NOVOLOG FLEXPEN 10 UNITS SC (21:15)
[2023-08-19] MEDS: LANTUS 0.299999999999999989 UNITS SC (21:15)
[2023-08-19 22:59] LABS: Glucose - Point of Care 196 mg/dl (70-99)
[2023-08-19 23:05] VITALS: BP 123/81
[2023-08-20 03:08] VITALS: BP 121/71
[2023-08-20] MEDS: FLUSH (NSS) 1 FLUSH IV (04:45)
[2023-08-20] MEDS: ZOSYN 50 IV ×4 (04:45→21:37)
[2023-08-20 04:52] LABS: Hematocrit 30.3 % (39.0-52.0); Hemoglobin 10.6 g/dL (13.0-18.0); Mean Corpuscular Hgb 29.5 pg (27.0-31.0); Mean Corpuscular Volume 84.4 fL (80.0-94.0); Mean Platelet Volume 8.1 fL (7.4-10.4); Platelet Count 269 10^3/uL (130-400); Red Blood Cell Count 3.59 10^6/uL (4.70-6.10); Red Cell Dist. Width 12.7 % (11.5-14.5); White Blood Cell Count 5.7 10^3/uL (4.8-10.8)
[2023-08-20 05:28] LABS: Blood Urea Nitrogen 7 mg/dl (9-20); Calcium 8.4 mg/dl (8.4-10.2); Carbon Dioxide 34 mmol/L (22-30); Chloride 99 mmol/L (98-107); Estimated Creatinine Clearance > 125 ml/min; Glucose 88 mg/dl (70-99); Potassium 3.4 mmol/L (3.5-5.1); Sodium 136 mmol/L (135-145); eGFR > 60.00
[2023-08-20] MEDS: VANCOCIN 200 IV (05:43)
[2023-08-20 07:16] LABS: Glucose - Point of Care 116 mg/dl (70-99)
--- NOTE | 2023-08-20 07:22 | PN.DE.MGMTRT ---
Insulin Management
- -
08/20/2023: Diabetes Management F/U:
32 year old male w/MH: T1DM and hidradenitis suppurativa who presents to the ED for evaluation of rectal pain and swelling noted for Sepsis due to perianal abscess. He is now s/p incision and drainage of perianal abscess on 08/18/23.
Pt follows Endocrine Dr. Cunningham, was last seen 3 years ago, and his A1C was 7.4% at the time. A1C was 12.1% on admission, states he uses CGM- [employer] for glucose monitoring at home. He does not follow any particular meal plan although he states he
was told to follow a diabetic diet.
Pt seen after lunch, resting in bed, Awake, A/O x3, offers no complaints and is able to participate in discussion regarding diabetes management.
States he was taking Lantus 24 units BID, Humalog SS insulin following ICR of 1.5:10, ISF of 1:40-50, Target glucose of 100, prior to admission. Cr 0.5, eGFR>60
Pt seen this morning, Dad and Mom at bedside, along with GF on the phone.
Pt is Awake, A/O x3, offers no complaints and is able to participate in discussion regarding diabetes management.
He was started on NovoLog 8 units AC yesterday, however, glucose remained >300, requiring additional corrective insulin.
Will increase NovoLog to 12 units AC. FBG in range at 88 this AM. Will cont Lantus 30 units BID. Cont low corrective insulin with meals.
Will follow closely and adjust further as necessary.
Pt and GF(over phone) asking for Keto diet, pt was made aware that hospital will provide meals that fall within the 2000 ADA diet and that its best for him to try a lower-carb diet before implementing a full ketogenic diet to get an idea of how his
body will respond and to minimize the risk of potential side effects.
Diabetes History
- -
Type of Diabetes: 1
Pre-Admission Diabetes Regimen
08/20/23
04:34
Creatinine 0.6 L
Lab Results
Hemoglobin A1c 12.1 % (4.0-5.6) H 08/18/23 06:28
Insulin Pump Settings
IP Diabetes Regimen
08/19/23 08/19/23 08/19/23
08:03 12:58 16:58
Glucose
POC Glucose 210 H 346 H 347 H
08/19/23 08/19/23 08/20/23
19:32 22:57 04:34
Glucose 88
POC Glucose 300 H 196 H
08/20/23
07:15
Glucose
POC Glucose 116 H
Amount consumed: 100%
Patient Education
[2023-08-20 07:47] VITALS: BP 101/66
[2023-08-20] MEDS: LANTUS 0.299999999999999989 UNITS SC ×2 (08:02→20:26)
[2023-08-20] MEDS: ZOLOFT 150 MG PO (08:02)
[2023-08-20] MEDS: NOVOLOG FLEXPEN-MODERATE RESISTANCE SC (08:03)
[2023-08-20] MEDS: NOVOLOG FLEXPEN 12 UNITS SC ×3 (08:03→17:18)
[2023-08-20] MEDS: DILAUDID 1 MG IV ×2 (08:11→21:38)
[2023-08-20] MEDS: FLUSH (NSS) 2 FLUSH IV ×3 (08:12→16:55)
--- NOTE | 2023-08-20 09:22 | W.PN.HOSP.TC ---
Today's Communication/Plan
-
see bold
Assessment / Plan
Assessment / Plan
Gen: NAD, AAOx3.
Eyes: EOMI, PERRLA, no scleral icterus.
Neck: supple.
CV: Continues to remain RRR, +S1/S2, no m/r/g.
Resp: Continues to room CTAB, no rales, wheezes, or rhonchi.
Abd: +BS, soft, NT, ND
Skin: No rashes.
Neuro: Continues to remain CN 2-12 intact, non-focal.
Psych: Slightly depressed mood and flat affect.
08/18/23 18:09 Nose MRSA Screen - Final
No Methicillin Resistant Staphylococcus aureus isolated.
08/17/23 21:30 Blood/Venous Blood Culture - Preliminary
No Growth in 48 hours- Final report to follow
08/17/23 19:42 Blood/Venous Blood Culture - Preliminary
No Growth in 48 hours- Final report to follow
CT A/P:
1. LARGE 6.8 cm TUBULAR SHAPED RIM-ENHANCING RIGHT-SIDED PERIANAL ABSCESS extending to the right posterior skin surface surrounded by moderate inflammation and overlying skin thickening. 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
2. No CT evidence for intraperitoneal abscess.
3. Moderate amount of fecal material throughout the colon and rectum suggesting constipation.
4. Mild to moderate hepatosplenomegaly.
Sepsis due to perianal abscess:
-s/p incision and drainage of perianal abscess on 08/18/23
-surgery following
-cont Zosyn as per ID
-BCxs NGTD
-lactic acidosis, resolved
DM1, uncontrolled with hyperglycemia:
-a1c 12.1%
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
-cont SSI/accuchecks
Other problems:
Hidradenitis suppurativa: outpt f/u
Anxiety: Continue Zoloft/Lurasidone
Hyponatremia, mild
FULL/Lovenox
Anticipated Discharge: 24 - 48 hours
Subjective/Interval History
-
Date of Service: August 20, 2023
Objective Data
-
Labs:
Laboratory Results
08/20/23
04:34
WBC 5.7
Hgb 10.6 L
Hct 30.3 L
Plt Count 269
Sodium 136
Potassium 3.4 L
Chloride 99
Carbon Dioxide 34 H
BUN 7 L
Creatinine 0.6 L
Glucose 88
Calcium 8.4
Vital Signs:
Vital Signs
Temp Pulse Resp BP Pulse Ox
98.0 F 83 14 101/66 98
08/20/23 07:47 08/20/23 07:47 08/20/23 07:47 08/20/23 07:47 08/20/23 07:47
I&O
08/19/23 08/20/23 08/21/23
06:59 06:59 06:59
Intake Total 3950 / 3950 2520 / 2520
Output Total 1750 / 1750 1000 / 1000
Balance 2200 / 2200 1520 / 1520
--- NOTE | 2023-08-20 10:01 | CM ---
Patient seen bedside, reports no concerns or needs to CM. CM will follow for all discharging planning needs.
Plan; home with family, no needs.
[2023-08-20 10:43] VITALS: BP 126/85
--- NOTE | 2023-08-20 11:28 | W.PN.ID1 ---
Date of Service
Date of Service: August 20, 2023
Today's Communication
Continue Zosyn then transition to outpatient Augmentin 875mg po bid through 08/28/23.
Assessment / Plan
# Perirectal abscess s/p OR I+D 08/18/23; no intra-op culture sent
# Perirectal hidradenitis suppurative flare
# Fever resolved
# Leukocytosis resolved
# DM1
-Continue Zosyn then transition to outpatient Augmentin 875mg po bid through 08/28/23.
Chief Complaint
-: Other (melissa-rectal abscess)
Subjective / Review of Systems
Rectal pain improving
Vital Signs / Physical Exam
Vital Signs
Vital Signs
Temp Pulse Resp BP Pulse Ox
97.6 F 90 16 126/85 97
08/20/23 10:43 08/20/23 10:43 08/20/23 10:43 08/20/23 10:43 08/20/23 10:43
Physical Exam
Constitutional: No Acute Distress
Cardiovascular: Regular Rate and S1/S2
Pulmonary: Clear
Wound: Other (Rectal dressing with dried blood)
Neurological: AO x 3
Objective Data
Lab Data
Lab Results
08/20/23 04:34
08/20/23 04:34
Estimated Creat Clear > 125 ml/min 08/20/23 04:34
Lactic Acid 0.6 mmol/L (0.7-2.0) L 08/18/23 06:28
Total Bilirubin 0.8 mg/dl (0.2-1.3) 08/17/23 19:42
AST 23 U/L (17-59) 08/17/23 19:42
ALT 24 U/L (0-50) 08/17/23 19:42
Alkaline Phosphatase 180 U/L (38-126) H 08/17/23 19:42
Most recent labs reviewed.
Micro Results:
08/18/23 18:09 MRSA Screen - Final
Nose No Methicillin Resistant Staphylococcus aureus isolated.
08/17/23 21:30 Blood Culture - Preliminary
Blood/Venous No Growth in 48 hours- Final report to follow
08/17/23 19:42 Blood Culture - Preliminary
Blood/Venous No Growth in 48 hours- Final report to follow
08/17/23 CT a/p: LARGE 6.8 cm TUBULAR SHAPED RIM-ENHANCING RIGHT-SIDED PERIANAL ABSCESS extending to the right posterior skin surface surrounded by moderate inflammation and overlying skin thickening. 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
[2023-08-20 11:35] LABS: Glucose - Point of Care 200 mg/dl (70-99)
[2023-08-20] MEDS: NOVOLOG FLEXPEN-MODERATE RESISTANCE 3 UNITS SC (11:41)
--- NOTE | 2023-08-20 11:54 | W.PN.GS2 ---
Today's Communication / Plan
-
-- ID following - Zosyn, plan for transition to Augmentin on DC till 08/27
-- Start sitz bath's 3 times daily and as needed bowel movements to keep area clean
-- Apply ABD pad for drainage from open wounds
-- F/u Dr. Carr in 1 week
-- OK for DC from surgical perspective
Assessment / Plan
-
Assessment: 32-year-old male POD #2 status post I&D perianal abscess
Started on sitz baths, mild drainage, presenting symptoms
Plan:
-- ID following - Zosyn, plan for transition to Augmentin on DC till 08/27
-- Start sitz bath's 3 times daily and as needed bowel movements to keep area clean
-- Apply ABD pad for drainage from open wounds
-- F/u Dr. Carr in 1 week
-- OK for DC from surgical perspective
Subjective Data
-
Date of Service: August 20, 2023
No complaints. Pain much improved. No fevers. Drainage improving
Objective Data
-
Intake and Output
08/19/23 08/20/23 08/21/23
06:59 06:59 06:59
Intake Total 3950 / 3950 2520 / 2520
Output Total 1750 / 1750 1000 / 1000
Balance 2200 / 2200 1520 / 1520
Intake:
Oral fluids 2400 / 2400 2220 / 2220
IV fluids (Total) 1300 / 1300
Nss 1,000 ml @ 100 mls/hr IV . 100 / 100
Q10H [facility] Rx#:[id number]
IV piggybacks 250 / 250 300 / 300
Output:
Urine, Voided 1750 / 1750 1000 / 1000
Other:
Number of approximated MODERATE 5
amounts of urine
Number of approximated LARGE 2
amounts of urine
Vital Signs
Temp Pulse Resp BP Pulse Ox
97.6 F 90 16 126/85 97
08/20/23 10:43 08/20/23 10:43 08/20/23 10:43 08/20/23 10:43 08/20/23 10:43
Lab Results
08/20/23 04:34
08/20/23 04:34
Calcium 8.4 mg/dl (8.4-10.2) 08/20/23 04:34
Total Bilirubin 0.8 mg/dl (0.2-1.3) 08/17/23 19:42
AST 23 U/L (17-59) 08/17/23 19:42
ALT 24 U/L (0-50) 08/17/23 19:42
Alkaline Phosphatase 180 U/L (38-126) H 08/17/23 19:42
Total Protein 8.9 g/dl (6.3-8.2) H 08/17/23 19:42
Albumin 4.1 g/dl (3.5-5.0) 08/17/23 19:42
Physical Exam
-
Gen: NAD
Rectal: I&D site open and drainage bloody purulent output, small pocket more cranially palpated and expressed, mild induration, mild erythema, no pain
[2023-08-20 14:31] VITALS: BP 137/86
[2023-08-20 17:17] LABS: Glucose - Point of Care 279 mg/dl (70-99)
[2023-08-20] MEDS: NOVOLOG FLEXPEN-MODERATE RESISTANCE 5 UNITS SC (17:18)
[2023-08-20] MEDS: LOVENOX 40 MG SC (17:22)
[2023-08-20 19:15] VITALS: BP 123/78
[2023-08-20 20:26] LABS: Glucose - Point of Care 173 mg/dl (70-99)
[2023-08-20] MEDS: LATUDA 40 MG PO (21:37)
[2023-08-20 23:10] VITALS: BP 112/74
[2023-08-21 03:20] VITALS: BP 119/75
[2023-08-21] MEDS: ZOSYN 50 IV (04:33)
[2023-08-21 06:04] LABS: Hematocrit 31.9 % (39.0-52.0); Mean Corp Hgb Conc. 34.5 g/dL (33.0-37.0); Mean Corpuscular Hgb 30.1 pg (27.0-31.0); Mean Corpuscular Volume 87.2 fL (80.0-94.0); Mean Platelet Volume 8.3 fL (7.4-10.4); Platelet Count 286 10^3/uL (130-400); Red Blood Cell Count 3.66 10^6/uL (4.70-6.10); Red Cell Dist. Width 12.7 % (11.5-14.5); White Blood Cell Count 6.2 10^3/uL (4.8-10.8)
[2023-08-21 06:44] LABS: Blood Urea Nitrogen 7 mg/dl (9-20); Calcium 8.8 mg/dl (8.4-10.2); Carbon Dioxide 33 mmol/L (22-30); Chloride 100 mmol/L (98-107); Estimated Creatinine Clearance > 125 ml/min; Glucose 92 mg/dl (70-99); Potassium 3.6 mmol/L (3.5-5.1); Sodium 137 mmol/L (135-145); eGFR > 60.00
[2023-08-21 07:20] VITALS: BP 115/71
[2023-08-21 07:50] LABS: Glucose - Point of Care 101 mg/dl (70-99)
--- NOTE | 2023-08-21 08:15 | W.PN.HOSP.TC ---
Today's Communication/Plan
-
d/c
Assessment / Plan
Assessment / Plan
Gen: remains NAD, AAOx3.
Eyes: remains EOMI, PERRLA, no scleral icterus.
Neck: supple.
CV: RRR, +S1/S2, no m/r/g.
Resp: CTAB, no rales, wheezes, or rhonchi.
Abd: remains +BS, soft, NT, ND
Skin: No rashes.
Neuro: CN 2-12 intact, non-focal.
Psych: Slightly flat affect.
08/17/23 21:30 Blood/Venous Blood Culture - Preliminary
No Growth in 72 hours- Final report to follow
08/17/23 19:42 Blood/Venous Blood Culture - Preliminary
No Growth in 72 hours- Final report to follow
08/18/23 18:09 Nose MRSA Screen - Final
No Methicillin Resistant Staphylococcus aureus isolated.
CT A/P:
1. LARGE 6.8 cm TUBULAR SHAPED RIM-ENHANCING RIGHT-SIDED PERIANAL ABSCESS extending to the right posterior skin surface surrounded by moderate inflammation and overlying skin thickening. 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
2. No CT evidence for intraperitoneal abscess.
3. Moderate amount of fecal material throughout the colon and rectum suggesting constipation.
4. Mild to moderate hepatosplenomegaly.
Sepsis due to perianal abscess:
-s/p incision and drainage of perianal abscess on 08/18/23
-surgery following
-has been on Zosyn, transition to Augmentin on d/c
-BCxs NGTD
-lactic acidosis, resolved
DM1, uncontrolled with hyperglycemia:
-a1c 12.1%
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
-cont SSI/accuchecks
Other problems:
Hidradenitis suppurativa: outpt f/u
Anxiety: Continue Zoloft/Lurasidone
Hyponatremia, mild
FULL/Lovenox
Medically cleared for discharge.
Total time spent on d/c = 31 min. This included today's physical exam, progress note, review of laboratory and diagnostic data, preparation of discharge documents and prescriptions, and discussions about the pt's hospital course and discharge plan
with the patient and other medical laboratory manager involved in the patient's care.
Anticipated Discharge: Today
Subjective/Interval History
-
Date of Service: August 21, 2023
No new complaints.
Objective Data
-
Labs:
Laboratory Results
08/21/23
05:51
WBC 6.2
Hgb 11.0 L
Hct 31.9 L
Plt Count 286
Sodium 137
Potassium 3.6
Chloride 100
Carbon Dioxide 33 H
BUN 7 L
Creatinine 0.6 L
Glucose 92
Calcium 8.8
Vital Signs:
Vital Signs
Temp Pulse Resp BP Pulse Ox
98 F 77 16 119/75 98
08/21/23 03:20 08/21/23 03:20 08/21/23 03:20 08/21/23 03:20 08/21/23 03:20
I&O
08/20/23 08/21/23 08/22/23
06:59 06:59 06:59
Intake Total 2520 / 2520 1640 / 1640
Output Total 1000 / 1000
Balance 1520 / 1520 1640 / 1640
[2023-08-21] MEDS: NOVOLOG FLEXPEN 12 UNITS SC (08:26)
[2023-08-21] MEDS: ZOLOFT 150 MG PO (08:26)
[2023-08-21] MEDS: LANTUS 0.299999999999999989 UNITS SC (08:32)
[2023-08-21] MEDS: NOVOLOG FLEXPEN-MODERATE RESISTANCE SC (08:50)
--- NOTE | 2023-08-21 10:58 | CM ---
MD entered order for discharge .
Spoke with patient he said he was ready for discharge.
His mom Mara drove him home.
Offered VN he decline dneed.
PLAN Home no needs
--- NOTE | 2023-08-21 15:20 | W.DCSUMMARY ---
Discharge Summary
Discharge Data
Date of Admission: 08/17/23
Date of Discharge: 08/21/23
-
Pending Results: No
Hospital Course
Primary diagnoses:
Sepsis due to perianal abscess
Type 1 diabetes mellitus, uncontrolled with hyperglycemia
Secondary diagnoses:
Lactic acidosis
Hidradenitis suppurativa
Anxiety
Hyponatremia
Consultants:
General surgery
Infectious disease
Diabetes nurse practitioner
Imaging:
CT A/P:
1. LARGE 6.8 cm TUBULAR SHAPED RIM-ENHANCING RIGHT-SIDED PERIANAL ABSCESS extending to the right posterior skin surface surrounded by moderate inflammation and overlying skin thickening. 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
2. No CT evidence for intraperitoneal abscess.
3. Moderate amount of fecal material throughout the colon and rectum suggesting constipation.
4. Mild to moderate hepatosplenomegaly.
32-year-old male presented with a chief complaint of rectal pain as outlined in the H&P done on admission. Hospital course by problem list:
Sepsis due to perianal abscess: Imaging above. The patient was placed on broad-spectrum antibiotics. He underwent incision and drainage of perianal abscess on 08/18/23. His blood cultures were no growth to date. His lactic acidosis resolved. He
was seen in consultation by infectious disease and transition to Augmentin through August 28, 2023.
DM1, uncontrolled with hyperglycemia: The patient's a1c was 12.1%. His insulins were adjusted to Lantus 30U, premeal Novolog 12U.
Discharge Plan
-
Patient Disposition: Home (Routine Discharge)
Discharge Diagnosis/Procedures: Perianal abscess
Condition: Good
Diet: Diabetic, Carb Controlled
Activity: No strenuous activity
Driving Restrictions: As prior to admission
Bathing Restrictions: Sitz baths 2-3x a day until follow-up
Wound Care: Cover area with gauze or ABD as needed for drainage
Referrals:
Lino Roque CRNP [Family Provider] - in less than 1 week
Maurilio Carr MD [Active] - in one to two weeks
Prescriptions:
New
insulin glargine [Lantus Solostar U-100 Insulin] 100 unit/mL (3 mL) insulin pen
30 unit SC DAILY Qty: 15 0RF
insulin aspart U-100 [Novolog FlexPen U-100 Insulin] 100 unit/mL (3 mL) Insulin Pen
12 unit SC AC Qty: 5 0RF
(DME) pen needle, diabetic [BD Ultra-Fine Brina Pen Needle] 32 gauge x 5/32' Needle
Qty: 200 0RF
Rx Instructions:
As Directed
amoxicillin-pot clavulanate 875-125 mg tablet
1 tab PO BID Qty: 16 0RF
Continued
insulin lispro [Humalog U-100 Insulin] 100 unit/mL solution
0 sliding scale dose SC ACHS
sertraline 50 mg tablet
150 mg PO DAILY
lurasidone 40 mg tablet
40 mg PO HS
Humira(CF) Pen 80 mg/0.8 mL pen injector kit
80 mg SC Q2W
Discontinued
insulin glargine [Lantus Solostar U-100 Insulin] 100 unit/mL (3 mL) Insulin Pen
24 unit SC BID
doxycycline hyclate 100 mg capsule
100 mg PO BID
Discharge Orders:
Discharge Patient (As Directed); Ordered 08/21/23
Ordered By: Chandana Hassan
Discharge Date and Time
Discharge Date/Time: 08/21/23 10:45
Print Language: WELSH
== END 2023-08-21 10:45 | disposition home or self-care (01) | DRG 872 ==
LOC: 2 SOUTH 22:30
PROVIDERS: Emergency Medicine; Registered Nurse; ADMITTING PHYSICIAN Hospitalist; ATTENDING PHYSICIAN Internal Medicine; CONSULT PHYSICIAN Surgery; EMERGENCY PHYSICIAN Emergency Medicine; FAMILY PHYSICIAN Nurse Practitioner Family; OTHER PHYSICIAN Internal Medicine Infectious Disease
PROC: 0J990ZZ Drainage of Buttock Subcutaneous Tissue and Fascia, Open Approach (ICD-10-PCS; 2023-08-18)
DX: A41.9 Sepsis, unspecified organism (principal); E87.1 Hypo-osmolality and hyponatremia; K61.2 Anorectal abscess; E87.20 Acidosis, unspecified; K62.89 Other specified diseases of anus and rectum; L73.2 Hidradenitis suppurativa; E10.65 Type 1 diabetes mellitus with hyperglycemia; F41.9 Anxiety disorder, unspecified; Z79.4 Long term (current) use of insulin
CPT/HCPCS: 74177; 80048; 80053; 82962; 83036; 83605; 85025; 85027; 87040; 87070; 96361; 96372; 96374; 96375; 99291; Q9967